=== PATIENT | female | born 1960 | race Two or more races ===

== ENCOUNTER 2018-02-18 18:13 | Emergency (ER) | payer OTHER ==
[~2018-02-18] VITALS: Ht 157.5 cm; Wt 70.3 kg
[~2018-02-18 18:13] MED LIST: FIORICET 50-301 EACH PO; NEXIUM40 MG/PACK PO; SYNTHROID100 MCG PO; VITAMIN D400 UNIT PO
[2018-02-19] MEDS ORDERED: CIPRO500 MG PO (03:21)
== END 2018-02-19 03:32 | disposition home or self-care (01) ==
LOC: ER 18:13
DX: N39.0 Urinary tract infection, site not specified (principal); R10.32 Left lower quadrant pain